=== PATIENT | female | born 1995 ===

== ENCOUNTER 2022-02-01 15:31 | Outpatient (CLI) | payer OTHER | END 2022-02-01 17:00 | disposition home or self-care (01) | LOC: PRENATAL 15:31 | PROVIDERS: ATTEND Obstetrics & Gynecology Maternal & Fetal Medicine | DX: O35.0XX0 Maternal care for (suspected) central nervous system malformation in fetus, not applicable or unspecified (principal); O35.3XX0 Maternal care for (suspected) damage to fetus from viral disease in mother, not applicable or unspecified; Z3A.22 22 weeks gestation of pregnancy; Z91.013 Allergy to seafood ==

== ENCOUNTER 2022-04-11 10:18 | Outpatient (CLI) | payer OTHER | END 2022-04-11 10:47 | disposition home or self-care (01) | LOC: PRENATAL 10:18 | PROVIDERS: ATTEND Obstetrics & Gynecology Maternal & Fetal Medicine | DX: O26.849 Uterine size-date discrepancy, unspecified trimester (principal); O36.8199 Decreased fetal movements, unspecified trimester, other fetus; Z91.013 Allergy to seafood; Z3A.32 32 weeks gestation of pregnancy ==

== ENCOUNTER 2022-05-01 13:28 | Inpatient (IN) | payer OTHER ==
[~2022-05-01] VITALS: Ht 160 cm; Wt 54.4 kg
[2022-05-01] MEDS ORDERED: PRENATAL TABLE1 EAC3 PO (16:47)
== END 2022-05-04 11:43 | disposition home or self-care (01) | DRG 833 ==
LOC: LDR 13:28 → OB/GYN 05-02 17:13
PROVIDERS: ADMIT Obstetrics & Gynecology; ATTEND Obstetrics & Gynecology
PROC: 4A1HXCZ Monitoring of Products of Conception, Cardiac Rate, External Approach (ICD-10-PCS; principal; 2022-05-01)
DX: O60.03 Preterm labor without delivery, third trimester (principal); Z3A.34 34 weeks gestation of pregnancy; Z20.822 Contact with and (suspected) exposure to COVID-19

== ENCOUNTER 2022-06-01 04:23 | Inpatient (IN) | payer OTHER ==
[~2022-06-01] VITALS: Ht 160 cm; Wt 56.7 kg
[~2022-06-01 04:23] MED LIST: PRENATAL TABLE1 EAC3 PO
== END 2022-06-03 14:19 | disposition home or self-care (01) | DRG 807 ==
LOC: OB/GYN 04:23 → LDR 04:23 → OB/GYN 18:18
PROVIDERS: ADMIT Obstetrics & Gynecology; ATTEND Obstetrics & Gynecology
PROC: 10E0XZZ Delivery of Products of Conception, External Approach (ICD-10-PCS; principal; 2022-06-01)
PROC: 4A1HXCZ Monitoring of Products of Conception, Cardiac Rate, External Approach (ICD-10-PCS; 2022-06-01)
DX: O99.824 Streptococcus B carrier state complicating childbirth (principal); Z37.0 Single live birth; Z3A.39 39 weeks gestation of pregnancy; Z20.822 Contact with and (suspected) exposure to COVID-19